=== PATIENT | female | born 1985 | race Caucasian/White ===

== ENCOUNTER 2018-09-21 20:45 | Inpatient (IN) | payer OTHER ==
[2018-09-21] MEDS ORDERED: hydrOXYzine HCl 25 MG Tab PO ONE (22:16)
[2018-09-21] MEDS ORDERED: Lidocaine 1% 30 ML SDV INJECT PRN (23:28)
[2018-09-21] MEDS ORDERED: Misoprostol 400 MCG (4 X 100 MCG TAB) RECTAL PRN (23:28)
[2018-09-21] MEDS ORDERED: Carboprost Tromethamine 250 MCG/1 ML Amp IM PRN (23:28)
[2018-09-21] MEDS ORDERED: Methylergonovine 0.2 MG/1 ML Amp IM PRN (23:28)
[2018-09-21] MEDS ORDERED: Lactated Ringers 500 ML IV ONE (23:28)
[2018-09-21] MEDS ORDERED: Ondansetron 4 MG/2 ML SDV IV PRN (23:28)
[2018-09-21] MEDS ORDERED: Sodium Chloride 0.9% 10 ML Syringe FLUSH PRN (23:28)
[2018-09-21] MEDS ORDERED: Acetaminophen 325 MG Tab PO PRN (23:28)
[2018-09-21] MEDS ORDERED: Tranexamic Acid 1,000 MG in Sodium Chloride 0.9% 100 ML IV PRN (23:28)
[2018-09-21] MEDS ORDERED: fentaNYL 100 MCG/2 ML SDV ONE (23:44)
[2018-09-21] MEDS ORDERED: EPINEPHrine 1 MG/ML SDV ONE (23:44)
[2018-09-22] MEDS: Lactated Ringers 1,000 ML IV SCH ×6 (00:01→13:27)
--- NOTE | 2018-09-22 00:20 | PCM.PRNOTE ---
- Free Text/Narrative Note: Requested to provide analgesia to full term patient in severe pain. Upon entering the room, patient is sitting on edge of bed complaining of severe abdominal/pelvic pain and discomfort. Procedure was discussed with patient including adverse outcomes and expectations. Pt consented to analgesia, SAB/ IT. Pt placed into a proper sitting position. Landmarks for SAB/IT were identified and marked. Hands were washed and appropriate PPE was applied. Back was prepped with betadine x3. A sterile, transparent, fenestrated drape was applied. Excess betadine was removed. Using 3 mL of a 1% lidocaine solution , a skin wheel was placed at the L2/L3 interspace. A 24 ga (4 inch) Pencan spinal needle was inserted until positive for CSF. Negative for heme or paresthesias. Injected fentanyl 30 mcg, sufentanil 25 mcg, and 7.5 mg of a 0.75 % bupivacaine solution with an epi wash. Pt was placed left lateral position for approximately 20 minutes. There were zero complications or adverse outcomes. Will continue to monitor. Procedure Date & Time: 09/21/18 [id number]
[2018-09-22] MEDS: Calcium Carbonate 500 MG Tab.Chew PO PRN (00:54)
[2018-09-22] MEDS ORDERED: EPINEPHrine 1 MG/ML SDV ONE (04:27)
[2018-09-22] MEDS ORDERED: fentaNYL 100 MCG/2 ML SDV ONE ×2 (04:27→08:51)
--- NOTE | 2018-09-22 04:59 | PCM.PRNOTE ---
- Free Text/Narrative Note: Requested to provide analgesia to full term patient in severe pain. Upon entering the room, patient is sitting on edge of bed complaining of severe abdominal/pelvic pain and discomfort. Procedure was discussed with patient including adverse outcomes and expectations. Pt consented to analgesia, SAB/ IT. Pt placed into a proper sitting position. Landmarks for SAB/IT were identified and marked. Hands were washed and appropriate PPE was applied. Back was prepped with betadine x3. A sterile, transparent, fenestrated drape was applied. Excess betadine was removed. Using 3 mL of a 1% lidocaine solution , a skin wheel was placed at the L2/L3 interspace. A 24 ga (4 inch) Pencan spinal needle was inserted until positive for CSF. Negative for heme or paresthesias. Injected fentanyl 20 mcg, sufentanil 20 mcg, and 7.5 mg of a 0.75 % bupivacaine solution with an epi wash. Pt was placed left lateral position for approximately 20 minutes. There were zero complications or adverse outcomes. Will continue to monitor. Procedure Date & Time: 09/22/18 [id number]
[2018-09-22] MEDS: Oxytocin/Normal Saline 30 UNIT/500 ML BAG IV SCH ×2 (05:10→16:44)
--- NOTE | 2018-09-22 06:19 | HP ---
CHIEF COMPLAINT: Increased force and frequency of contractions. HISTORY OF PRESENT ILLNESS: The patient is a 33-year-old , at 38 weeks and 6 days gestation, who presented to Labor and Delivery with contractions that started around 11:00 a.m. this morning, they felt really achy. They were building up throughout the day, upon arrival they were 4 minutes apart. She also has some pelvic pain. She has no leakage of large amounts of fluid. Does have some mucus with a little bit of blood in it. movement has remained excellent. No other concerns or questions at this time. LABS: Blood type O positive, rubella immune, syphilis serology nonreactive. Hep B nonreactive. HIV negative. Gonorrhea and chlamydia negative. One-hour glucose 149, 3-hour glucose 113. GBS negative. PAST MEDICAL HISTORY: 1. Maternal anemia affecting the in the third trimester. 2. History of chickenpox. 3. Dehydration during . 4. Heartburn. 5. Anxiety. PAST SURGICAL HISTORY: EGD with closed biopsy and tympanostomy tube placement. FAMILY HISTORY: Mother, anxiety disorder. Father, depression and high cholesterol. Maternal grandmother, breast cancer. Paternal uncle, diabetes. SOCIAL HISTORY: She is working full-time at [employer] with [employer]. Lives with in [place] and has 3 stepdaughters. Met on GL 2ours. This is their 1st child together. It is a planned . works in [employer] with [employer]. MEDICATIONS: vitamins and iron. ALLERGIES: No known allergies. REVIEW OF SYSTEMS: As listed under history of present illness, otherwise unremarkable. No shortness of breath, chest pain, headaches, blurry vision, nausea, vomiting, or dysuria. PHYSICAL EXAMINATION: Vital Signs: Blood pressure 145/87, temperature 99.4, and pulse 105. RR 16. The patient is breathing through her contractions and desires intrathecal at this time. HEENT: Grossly unremarkable. Neck: Supple. No adenopathy. Heart: Regular without murmur. Lungs: Clear to auscultation bilaterally. Abdomen: Gravid and heart tone tracing in the 150s with mild variability. [place] showing contractions every 1 to 2 minutes. Pelvic: Cervix is 4 cm dilated, 75% effaced. Bag of water is intact. Extremities: Trace edema bilaterally. No erythema or tenderness noted. Neurologic: Appropriate. ASSESSMENT: 1. 1, para 0. 2. 38 weeks 6 days gestation. 3. Anemia of . 4. Blood type O positive. Rubella immune. Group B strep negative. 5. Abnormal 1 hour glucose tolerance test, normal 3-hour glucose tolerance test. PLAN: The patient will receive an intrathecal as soon as possible. Anticipate possible rupture of membranes after that or depending on her progress, may leave the bag of water intact. Anticipating vaginal delivery. We will monitor and make changes to plans when and if it becomes necessary. The patient was seen by myself and Dr. Callahan. Assessment and plan are under advisement of Dr. Callahan. Ramiroalexis Cruz, MS-III [facility] /[id number] I have seen this patient along with the student, and agree with the above evaluation and plan. See above notes for details. Elena Callahan MD. MTDMargarette
--- NOTE | 2018-09-22 07:33 | PCM.SN ---
- Free Text/Narrative Note: DOS: 09-22-18 Sharon has been laboring through the night. Has had her second intrathecal, which is working very well for her at this point. pitocin currently at 4 some meconium noted in fluid by nursing staff, but now fluid appears clear with her exam. she has some liquid meconium-like stool herself noted by me during her exam. cervix now rim posteriorly and is completely dilated at the 12-3 position. tracing Cat 2. continues to have long stretches of minimal variability no decels noted. baseline was 150, but was up to 160s-170 for a while currently back down to 150s with improved variability cxns every 2-3 minutes. tracing is favorable enough to allow her to continue to labor, and will allow her to labor down if possible. consider internal monitors if needed consider increasing pitocin if/when tracing returns to Cat 1 all questions answered for this delightful couple. staff aware of plan. note: temp 99.5 hmb
--- NOTE | 2018-09-22 09:55 | PCM.PRNOTE ---
- Free Text/Narrative Note: Requested to provide analgesia to full term patient in severe pain. Upon entering the room, patient is sitting on edge of bed complaining of severe abdominal/pelvic pain and discomfort. Procedure was discussed with patient including adverse outcomes and expectations. Pt consented to analgesia, SAB/ IT. Pt placed into a proper sitting position. Landmarks for SAB/IT were identified and marked. Hands were washed and appropriate PPE was applied. Back was prepped with betadine x3. A sterile, transparent, fenestrated drape was applied. Excess betadine was removed. Using 3 mL of a 1% lidocaine solution , a skin wheel was placed at the L2/L3 interspace. A 24 ga (4 inch) Pencan spinal needle was inserted until positive for CSF. Negative for heme or paresthesias. Injected fentanyl 15 mcg, sufentanil 20 mcg, and 7.5 mg of a 0.75 % bupivacaine solution. Pt was placed left lateral position for approximately 20 minutes. There were zero complications or adverse outcomes. Will continue to monitor. Procedure Date & Time: 09/21/18 [id number]
[2018-09-22] MEDS ORDERED: Oxytocin/Normal Saline 60 UNIT/1,000 ML BAG ONE (14:21)
[2018-09-22] MEDS ORDERED: Citric Acid/Sodium Citrate Solution 30 ML Cup PO ONE (14:35)
[2018-09-22] MEDS: ceFAZolin 2 GM in Premix Bag 1 BAG IV ONE ×2 (14:50→18:35)
[2018-09-22] MEDS ORDERED: Lactated Ringers 1,000 ML IV SCH (16:38)
[2018-09-22] MEDS ORDERED: ePHEDrine 50 MG/ML SDV IVPUSH PRN (16:38)
[2018-09-22] MEDS ORDERED: Misoprostol 400 MCG (4 X 100 MCG TAB) RECTAL PRN (16:38)
[2018-09-22] MEDS ORDERED: diphenhydrAMINE 50 MG/ML SDV IVPUSH PRN (16:38)
[2018-09-22] MEDS ORDERED: Ibuprofen 800 MG Tab PO PRN (16:38)
[2018-09-22] MEDS ORDERED: Carboprost Tromethamine 250 MCG/1 ML Amp IM ONE (16:38)
[2018-09-22] MEDS ORDERED: Acetaminophen 325 MG Tab PO PRN (16:38)
[2018-09-22] MEDS ORDERED: Acetaminophen/oxyCODONE 325-5 MG Tab PO PRN (16:38)
[2018-09-22] MEDS ORDERED: Ondansetron 4 MG/2 ML SDV IV PRN (16:38)
[2018-09-22] MEDS ORDERED: Methylergonovine 0.2 MG/1 ML Amp IM PRN (16:38)
[2018-09-22] MEDS ORDERED: Tranexamic Acid 1,000 MG in Sodium Chloride 0.9% 100 ML IV PRN (16:38)
[2018-09-22] MEDS ORDERED: Ketorolac 30 MG/ML SDV IVPUSH SCH (16:38)
[2018-09-22] MEDS ORDERED: Naloxone 2 MG/2 ML Syringe IVPUSH PRN (16:38)
--- NOTE | 2018-09-22 16:52 | PN ---
DATE: 09/22/2018 SUBJECTIVE: A 33-year-old primigravida, who presented today at 38 and 6/7th weeks in labor and is now 40 weeks' gestation. She progressed slowly and subsequently received intrathecal and Pitocin augmentation. She subsequently had a rim of cervix that easily slipped away with pushing. Therefore, we allowed her to push for the last hour and a half. However, she has pushed the baby down only to 0 to +1 station at the most with push. The baby's heart rate has remained reassuring. The mom is exhausted and is requesting a section at this point. The baby's head is not low enough to place the vacuum and I do not feel that her chances for vaginal delivery are good or that a vacuum would be helpful or successful. After discussion of her options, the patient and her now would like to proceed with a section and I do feel at this point that is the best option for this patient and the baby. The heart tones remained with a baseline of 150 with minimal variability. Has had a category 2 strip recently with no significant decelerations. IMPRESSION: A 33-year-old white female, 1, para 0, at 40 weeks' gestation. Failure to descend. Blood type O positive. Group B strep negative. Rubella immune. Admission hemoglobin 13.6/platelet count 27.9. Reassuring status with current category 2 tracing with intermittent meconium noted in the fluid. Patient with history of anxiety. PLAN: At this point, as noted, we will proceed with primary low-transverse section. Anticipate spinal anesthesia. The patient currently has a Chung catheter in place. This was pull down intermittently and currently does have some gross hematuria noted. I have reviewed the procedure with the patient and her . Reviewed alternatives, risks and benefits, and they do wish to proceed. Risks included, but were not limited to risk of infection with possible need of antibiotics including allergic reaction, risk of hemorrhage, and the possible need of blood transfusion with its inherent risks, known risk of DVT and will plan on Rohan stockings and SCDs and early ambulation for her, and risk of maternal or injury, etc. All other questions have been answered and they wished to proceed. Consent form has been signed. We will plan on Ancef 2 g IV for preop antibiotics. Natalie Hudson MD to assist along with medical students Supriya Dacosta MS-III and Ramiro Cruz, MS-III. Please see her notes and previous progress and nursing notes in [facility] for further details. [facility] /[id number] MTDD
[2018-09-22] MEDS: Simethicone 80 MG Tab.Chew PO SCH ×3 (17:36→22:06)
[2018-09-22] MEDS: Docusate Sodium 100 MG Cap PO PRN (18:40)
[2018-09-22] MEDS: Acetaminophen/oxyCODONE 325-5 MG Tab PO PRN ×2 (18:40→22:13)
[2018-09-22] MEDS: ceFAZolin 1 GM in Premix Bag 1 BAG IV SCH (22:09)
[2018-09-22] MEDS: Ketorolac 30 MG/ML SDV IVPUSH SCH (22:14)
--- NOTE | 2018-09-22 23:14 | OR ---
DATE: 09/22/2018 PREOPERATIVE DIAGNOSES: 1. A 33-year-old white female, G1, P0 at 40 weeks' gestation, failure to descend with category 2 tracing. 2. O positive blood type. 3. Rubella immune. 4. Group B Streptococcus negative. 5. History of anxiety. POSTOPERATIVE DIAGNOSES: 1. A 33-year-old white female, 1, now para 1. 2. Large for gestational age female, weighing 9 pounds 12 ounces/4415 grams with score of 7 and 9 at 1 and 5 minutes respectively born on 09/22/2019 at 15:14. 3. Occiput posterior presentation. 4. O positive blood type. 5. Rubella immune. 6. Group B Streptococcus negative. 7. History of anxiety. PROCEDURE: Primary low-transverse section. NYLON WINDER: Natalie Hudson MD; Supriya Dacosta MS-III; Ramiro Cruz MS-III. FINDINGS: This delightful 33-year-old, G1, P0 at 40 weeks' gestation, had presented in spontaneous labor. tracings were reassuring and she was subsequently evaluated and admitted. Please see her admission H and P for details. She underwent artificial rupture of membranes, had Pitocin augmentation, and intrathecals placed by Anesthesia, Chung catheter on the floor, and progressed to a point where she could begin pushing. Though, she pushed for over an hour and a half, she did not make significant progress and the baby's head descended only to a 0 station. Would come down to nearly a +1 with pushing, however, to go back up to a 0 station between contractions. We suspected a possible LGA in possibly OP presentation. Decision was made to proceed with section, please see progress notes for details. DESCRIPTION OF PROCEDURE: After consent was obtained, the patient was brought down to the OR and underwent spinal anesthesia with excellent results. She was prepped and draped in the usual sterile manner. A surgical marker was used to germania a Pfannenstiel incision. A time-out was performed in my presence. A skin incision was made with a scalpel. Electrocautery was used down through the subcutaneous tissue to the fascia, which was divided transversely. The rectus was identified and divided. This was done after superior and inferior fascial flaps were developed by sharp and blunt dissection without complication. The peritoneum was identified and entered bluntly and opened until we had visualization of the lower uterine segment. Her lower uterine segment appeared to be very thin and quite prominent and bulging forward. At first it appeared to possibly be the bladder, however, on further inspection, this was not the case and was actually noted to just simply be a large lower uterine segment. The XL Ramiro retractor was placed without difficulty. There was a small window of a bladder flap that had started to 4 minutes, it was extended again by sharp and blunt dissection and a stab incision was made into the lower uterine segment. Return of a moderate amount of fluid noted to be both clear and some meconium staining. The baby was in an OP presentation and the vertex was elevated up into the incision and subsequently delivered followed by the shoulders and the remainder of the baby. She was noted to be an LGA infant and had a spontaneous cry at . She was stimulated, dried, and suctioned. Her cord was doubly clamped and cut and the baby was carried to the warmer and handed off to awaiting nursery staff and cared for by Dr. Porter. The weight was later found to be 9 pounds 12 ounces/4415 g as noted and her score were 7 at 1 minute, and 9 at 5 minutes. Time of was 3:14 p.m. on 09/22/2018. A cord blood sample was obtained. The placenta was removed manually and the uterus was wiped clean and dry. The lower uterine segment was quite long and the cervix was noted to be opened. The placenta was later inspected and found to be complete with a central cord insertion and 3-vessel cord. The lower uterine section was slightly boggy and we did use increased doses of Pitocin infusion to help firm up the uterus. Incision edges were grasped with Heart forceps and the incision was closed with a running locking 0 Vicryl suture followed by an imbricating layer #2 for a double-layer closure, therefore she would be a candidate if she so chooses. Any small bleeders were electrocauterized and a couple of [id number] sutures were placed for hemostasis. The incision was then inspected and found to be dry. The uterus and tubes were inspected and appeared to be within normal limits. The uterus was lifted and the posterior cul-de-sac was examined. Uterus was placed back into its anatomic position and incision was examined 1 more time and found to be hemostatic. The Ramiro retractor was removed. The peritoneum layer was closed with a running Vicryl scrap. Muscle layer was brought together with interrupted [id number] stitches. The subfascial layer was irrigated. The fascia was closed with a running PDS loop suture with good results. Subcutaneous layer was irrigated. Bleeders were electrocauterized and the skin was brought together with wojciech. Sponge and instrument counts were correct. The patient received Ancef 2 g IV preop antibiotic. The patient is receiving Pitocin IV infusion per protocol. ESTIMATED BLOOD LOSS: 600 mL. There were no intraoperative complications and she was transferred to the recovery room in good condition with Chung continuing to drain slightly blood tinged urine. She had adequate urinary output during and following the procedure. We will follow up and postop orders and cares. Further management pending her clinical course. She does plan to breastfeed. [facility] /[id number]
[2018-09-23] MEDS: Ketorolac 30 MG/ML SDV IVPUSH SCH ×2 (03:46→09:45)
[2018-09-23] MEDS: Acetaminophen/oxyCODONE 325-5 MG Tab PO PRN ×4 (06:23→22:15)
[2018-09-23] MEDS: ceFAZolin 1 GM in Premix Bag 1 BAG IV SCH ×2 (06:24→13:23)
--- NOTE | 2018-09-23 08:02 | PCM.PN ---
<Supriya Dacosta - Last Filed: 09/23/18 08:12> - General Info Date of Service: 09/23/18 Admission Dx/Problem (Free Text): Patient is 33yo primigravida female HD#1 S/P Primary LTCS due to failure to descend with category 2 tracing with delivery of LGA female weighing 4415g. Patient is doing well. Reports feeling sore but no other concerns. Dia catheter is still in place, urine has returned to normal color. Compression stockings in place with SCD's Patient is excited to get dia removed and clean up Patient is tolerating general diet. - Patient Data Vitals - Most Recent: Last Vital Signs Temp 98.5 F 09/23/18 03:37 Pulse 122 H 09/23/18 04:00 Resp 18 09/23/18 04:00 BP 126/58 L 09/23/18 04:00 Pulse Ox 98 09/22/18 16:45 Weight - Most Recent: 237 lb I&O - Last 24 Hours: Intake & Output 09/22/18 09/23/18 09/23/18 22:59 06:59 14:59 Intake Total 324 2300 Output Total 50 350 Balance 274 1950 Med Orders - Current: Current Medications Acetaminophen (Tylenol) 650 mg PO Q4H PRN PRN Reason: Pain (Mild 1-3) and fever Acetaminophen (Tylenol) 650 mg PO Q6H PRN PRN Reason: mild pain or fever Calcium Carbonate/Glycine (Tums) 1,000 mg PO Q2H PRN PRN Reason: Heartburn Last Admin: 09/22/18 00:54 Dose: 1,000 mg Carboprost Tromethamine (Hemabate Ds) 250 mcg IM ASDIRECTED PRN PRN Reason: HEMORRHAGE Diphenhydramine HCl (Benadryl) 25 mg IVPUSH Q6H PRN PRN Reason: Itching or Nausea Docusate Sodium (Colace) 100 mg PO Q12H PRN PRN Reason: Constipation Last Admin: 09/22/18 18:40 Dose: 100 mg Ephedrine Sulfate (Ephedrine Sulfate) 5 mg IVPUSH SEECOMMENT PRN PRN Reason: Other Lactated Ringer's (Ringers, Lactated) 1,000 mls @ 125 mls/hr IV ASDIRECTED ORLIN Last Admin: 09/22/18 13:27 Dose: 125 mls/hr Oxytocin/Sodium Chloride (Pitocin In Ns 30 Unit/500 Ml) 30 unit in 500 mls @ 2 mls/hr IV TITRATE [facility]; Protocol Last Titration: 09/22/18 19:50 Dose: 0 mls/hr Tranexamic Acid 1,000 mg/ (Sodium Chloride) 110 mls @ 660 mls/hr IV ONETIME PRN PRN Reason: Bleeding Cefazolin Sodium/Dextrose 1 gm (/ Premix) 50 mls @ 100 mls/hr IV Q8HR [facility] Stop: 09/23/18 14:29 Last Admin: 09/23/18 06:24 Dose: 100 mls/hr Lactated Ringer's (Ringers, Lactated) 1,000 mls @ 125 mls/hr IV ASDIRECTED [facility] Tranexamic Acid 1,000 mg/ (Sodium Chloride) 110 mls @ 660 mls/hr IV ONETIME PRN PRN Reason: Bleeding Ibuprofen (Motrin) 800 mg PO Q8H PRN PRN Reason: mild pain or fever Ketorolac Tromethamine (Toradol) 15 mg IVPUSH Q6H [facility] Stop: 09/23/18 10:01 Last Admin: 09/23/18 03:46 Dose: 15 mg Lidocaine HCl (Xylocaine-Mpf 1%) 30 ml INJECT ASDIRECTED PRN PRN Reason: Perineal Repair Methylergonovine Maleate (Methergine) 0.2 mg IM ASDIRECTED PRN PRN Reason: Hemorrhage Methylergonovine Maleate (Methergine) 0.2 mg IM ONETIME PRN PRN Reason: Excessive Vaginal Bleeding Misoprostol (Cytotec) 800 mcg RECTAL ASDIRECTED PRN PRN Reason: Hemorrhage Misoprostol (Cytotec) 800 mcg RECTAL ASDIRECTED PRN PRN Reason: Excessive bleeding Naloxone HCl (Narcan) 0.1 mg IVPUSH SEECOMMENT PRN PRN Reason: Respiratory Depression Ondansetron HCl (Zofran) 4 mg IV Q4H PRN PRN Reason: Nausea/Vomiting Last Admin: 09/22/18 04:25 Dose: 4 mg Ondansetron HCl (Zofran) 4 mg IV Q4H PRN PRN Reason: Nausea/Vomiting Oxycodone/Acetaminophen (Percocet 325-5 Mg) 1 tab PO Q4H PRN PRN Reason: Pain (moderate 4-6) Oxycodone/Acetaminophen (Percocet 325-5 Mg) 2 tab PO Q4H PRN PRN Reason: Pain (moderate 4-6) Last Admin: 09/23/18 06:23 Dose: 2 tab Prenat Multivit/Bollinger/Iron/Folic Ac ( Plus Iron) 1 each PO DAILY [facility] Simethicone (Simethicone) 160 mg PO QID ORLIN Last Admin: 09/22/18 22:06 Dose: 160 mg Sodium Chloride (Saline Flush) 10 ml FLUSH ASDIRECTED PRN PRN Reason: Keep Vein Open Discontinued Medications Carboprost Tromethamine (Hemabate Ds) 250 mcg IM ONETIME ONE Stop: 09/22/18 16:39 Last Admin: 09/22/18 17:36 Dose: Not Given Citric Acid/Sodium Citrate (Bicitra Solution) 30 ml PO ONETIME ONE Stop: 09/22/18 14:36 Last Admin: 09/22/18 15:58 Dose: Not Given Epinephrine HCl (Adrenalin) Confirm Administered Dose 1 mg .ROUTE .STK-MED ONE Stop: 09/21/18 23:45 Last Admin: 09/22/18 01:00 Dose: Not Given Epinephrine HCl (Adrenalin) Confirm Administered Dose 1 mg .ROUTE .STK-MED ONE Stop: 09/22/18 04:28 Last Admin: 09/22/18 07:02 Dose: Not Given Fentanyl (Sublimaze) Confirm Administered Dose 100 mcg .ROUTE .STK-MED ONE Stop: 09/21/18 23:45 Last Admin: 09/22/18 01:00 Dose: Not Given Fentanyl (Sublimaze) Confirm Administered Dose 100 mcg .ROUTE .STK-MED ONE Stop: 09/22/18 04:28 Last Admin: 09/22/18 07:07 Dose: Not Given Fentanyl (Sublimaze) Confirm Administered Dose 100 mcg .ROUTE .STK-MED ONE Stop: 09/22/18 08:52 Last Admin: 09/22/18 14:36 Dose: Not Given Hydroxyzine HCl (Atarax) 50 mg PO ONETIME ONE Stop: 09/21/18 22:17 Last Admin: 09/21/18 22:31 Dose: 50 mg Lactated Ringer's (Ringers, Lactated) 500 mls @ 999 mls/hr IV .BOLUS ONE Stop: 09/21/18 23:58 Last Admin: 09/21/18 23:10 Dose: 999 mls/hr Oxytocin/Sodium Chloride (Pitocin In Ns 30 Unit/500 Ml) Confirm Administered Dose 60 unit in 1,000 mls @ as directed .ROUTE .STK-MED ONE Stop: 09/22/18 14:22 Cefazolin Sodium/Dextrose 2 gm (/ Premix) 50 mls @ 100 mls/hr IV ONETIME ONE Stop: 09/22/18 15:00 Last Admin: 09/22/18 18:35 Dose: Not Given Ibuprofen (Motrin) 800 mg PO Q8H PRN PRN Reason: mild pain or fever Ketorolac Tromethamine (Toradol) 15 mg IVPUSH Q6H ORLIN Stop: 09/23/18 04:39 Last Admin: 09/22/18 18:36 Dose: Not Given Sufentanil Citrate (Sufenta) Confirm Administered Dose 50 mcg .ROUTE .STK-MED ONE Stop: 09/21/18 23:45 Last Admin: 09/22/18 01:00 Dose: Not Given Sufentanil Citrate (Sufenta) Confirm Administered Dose 50 mcg .ROUTE .STK-MED ONE Stop: 09/22/18 04:28 Last Admin: 09/22/18 07:07 Dose: Not Given Sufentanil Citrate (Sufenta) Confirm Administered Dose 50 mcg .ROUTE .STK-MED ONE Stop: 09/22/18 08:52 Last Admin: 09/22/18 14:36 Dose: Not Given - Exam General: Alert, Oriented, Cooperative, No Acute Distress HEENT: Pupils Equal, EOMI, Mucous Membr. Moist/[place] Neck: Supple Lungs: Clear to Auscultation, Normal Respiratory Effort. No: Crackles, Wheezing Cardiovascular: Regular Rate, Regular Rhythm, No Murmurs GI/Abdominal Exam: Normal Bowel Sounds, Soft, Tender (mildly), Other (uterus firm ay U) (Female) Exam: Normal External Exam, Vaginal Bleeding (normal amount) Extremities: Pedal Edema (compression stockings in place. SCD's on. ). No: Douglas's Sign, Leg Pain Peripheral Pulses: 3+: Posterior Tibial (L), Posterior Tibial (R) Skin: Warm, Dry, Intact Wound/Incisions: Dressing Dry and Intact. No: Erythema Neurological: No New Focal Deficit Psy/Mental Status: Alert, Normal Affect, Normal Mood - Problem List Review Problem List Initiated/Reviewed/Updated: Yes - My Orders Last 24 Hours: My Active Orders 09/22/18 16:38 Patient Status [ADT] Routine Antiembolic Devices [RC] 08,20 Bedrest [RC] ASDIRECTED Communication Order [RC] PER UNIT ROUTINE Intake and Output [RC] Q8H Notify Provider Intake and Out [RC] ASDIRECTED Notify Provider Vital Signs OB [RC] ASDIRECTED RT Incentive Spirometry [RC] Q2HWA Urinary Catheter Removal [RC] Per Unit Routine Vital Signs [RC] PER UNIT ROUTINE Acetaminophen [Tylenol] 650 mg PO Q6H PRN Acetaminophen/oxyCODONE [Percocet 325-5 MG] 1 tab PO Q4H PRN Acetaminophen/oxyCODONE [Percocet 325-5 MG] 2 tab PO Q4H PRN Docusate Sodium [Colace] 100 mg PO Q12H PRN Lactated Ringers [Ringers, Lactated] 1,000 ml IV ASDIRECTED Methylergonovine [Methergine] 0.2 mg IM ONETIME PRN Naloxone [Narcan] 0.1 mg IVPUSH SEECOMMENT PRN Ondansetron [Zofran] 4 mg IV Q4H PRN Tranexamic Acid [Cyklokapron] 1,000 mg Sodium Chloride 0.9% [Normal Saline] 100 ml IV ONETIME diphenhydrAMINE [Benadryl] 25 mg IVPUSH Q6H PRN ePHEDrine [ePHEDrine sulfate] 5 mg IVPUSH SEECOMMENT PRN miSOPROStol [Cytotec] 800 mcg RECTAL ASDIRECTED PRN Antiembolic Hose [OM.PC] Per Unit Routine Assess Lochia [WOMSER] Per Unit Routine Assess Uterine Involution [WOMSER] Per Unit Routine Breast Pump [WOMSER] Per Unit Routine Sequential Compression Device [OM.PC] Per Unit Routine 09/22/18 17:00 Simethicone 160 mg PO QID 09/22/18 22:00 Ketorolac [Toradol] 15 mg IVPUSH Q6H 09/22/18 Breakfast Clear Liquid Diet [DIET] 09/23/18 09:00 Vit with Ca/FA/Iron [ Plus Iron] 1 each PO DAILY 09/23/18 18:00 Ibuprofen [Motrin] 800 mg PO Q8H PRN 09/24/18 06:00 CBC W/O DIFF,HEMOGRAM [HEME] Routine - Plan Plan:: Assessment: Patient is 33yo primigravida female HD#1 S/P Primary LTCS due to failure to descend with category 2 tracing with delivery of LGA female weighing 4415g. Doing well. - O positive blood type -Rubella immune -GBS negative -Hx of anxiety -Occiput posterior presentation Plan: -Continue routine /postoperative cares -Dia out today as appropriate -Goal for ambulation, general diet, and urination - -Baby girl rooming in as much as possible for nursing and bonding Patient was seen and evaluated today by myself and Dr. Elena Callahan. Assessment and plan is under advisement of Dr. Callahan. -Supriya Dacosta MS-III <Elena Callahan M - Last Filed: 09/23/18 12:09> - General Info Date of Service: 09/23/18 Admission Dx/Problem (Free Text): Patient is 33yo primigravida female HD#1 S/P Primary LTCS due to failure to descend with category 2 tracing with delivery of LGA female weighing 4415g. Patient is doing well. Reports feeling sore but no other concerns. Dia catheter is still in place, urine has returned to normal color. Compression stockings in place with SCD's Patient is excited to get dia removed and clean up Patient is tolerating general diet. hmb - Patient Data Vitals - Most Recent: Last Vital Signs Temp 98.4 F 09/23/18 08:00 Pulse 102 H 09/23/18 08:00 Resp 16 09/23/18 08:00 BP 112/72 09/23/18 08:00 Pulse Ox 98 09/23/18 08:00 I&O - Last 24 Hours: Intake & Output 09/22/18 09/23/18 09/23/18 22:59 06:59 14:59 Intake Total 324 2300 Output Total 50 350 Balance 274 1950 Med Orders - Current: Current Medications Acetaminophen (Tylenol) 650 mg PO Q4H PRN PRN Reason: Pain (Mild 1-3) and fever Acetaminophen (Tylenol) 650 mg PO Q6H PRN PRN Reason: mild pain or fever Calcium Carbonate/Glycine (Tums) 1,000 mg PO Q2H PRN PRN Reason: Heartburn Last Admin: 09/22/18 00:54 Dose: 1,000 mg Carboprost Tromethamine (Hemabate Ds) 250 mcg IM ASDIRECTED PRN PRN Reason: HEMORRHAGE Diphenhydramine HCl (Benadryl) 25 mg IVPUSH Q6H PRN PRN Reason: Itching or Nausea Docusate Sodium (Colace) 100 mg PO Q12H PRN PRN Reason: Constipation Last Admin: 09/23/18 09:45 Dose: 100 mg Ephedrine Sulfate (Ephedrine Sulfate) 5 mg IVPUSH SEECOMMENT PRN PRN Reason: Other Lactated Ringer's (Ringers, Lactated) 1,000 mls @ 125 mls/hr IV ASDIRECTED [facility] Last Admin: 09/22/18 13:27 Dose: 125 mls/hr Oxytocin/Sodium Chloride (Pitocin In Ns 30 Unit/500 Ml) 30 unit in 500 mls @ 2 mls/hr IV TITRATE [facility]; Protocol Last Titration: 09/22/18 19:50 Dose: 0 mls/hr Tranexamic Acid 1,000 mg/ (Sodium Chloride) 110 mls @ 660 mls/hr IV ONETIME PRN PRN Reason: Bleeding Cefazolin Sodium/Dextrose 1 gm (/ Premix) 50 mls @ 100 mls/hr IV Q8HR [facility] Stop: 09/23/18 14:29 Last Admin: 09/23/18 06:24 Dose: 100 mls/hr Lactated Ringer's (Ringers, Lactated) 1,000 mls @ 125 mls/hr IV ASDIRECTED [facility] Tranexamic Acid 1,000 mg/ (Sodium Chloride) 110 mls @ 660 mls/hr IV ONETIME PRN PRN Reason: Bleeding Ibuprofen (Motrin) 800 mg PO Q8H PRN PRN Reason: mild pain or fever Lidocaine HCl (Xylocaine-Mpf 1%) 30 ml INJECT ASDIRECTED PRN PRN Reason: Perineal Repair Methylergonovine Maleate (Methergine) 0.2 mg IM ASDIRECTED PRN PRN Reason: Hemorrhage Methylergonovine Maleate (Methergine) 0.2 mg IM ONETIME PRN PRN Reason: Excessive Vaginal Bleeding Misoprostol (Cytotec) 800 mcg RECTAL ASDIRECTED PRN PRN Reason: Hemorrhage Misoprostol (Cytotec) 800 mcg RECTAL ASDIRECTED PRN PRN Reason: Excessive bleeding Naloxone HCl (Narcan) 0.1 mg IVPUSH SEECOMMENT PRN PRN Reason: Respiratory Depression Ondansetron HCl (Zofran) 4 mg IV Q4H PRN PRN Reason: Nausea/Vomiting Last Admin: 09/22/18 04:25 Dose: 4 mg Ondansetron HCl (Zofran) 4 mg IV Q4H PRN PRN Reason: Nausea/Vomiting Oxycodone/Acetaminophen (Percocet 325-5 Mg) 1 tab PO Q4H PRN PRN Reason: Pain (moderate 4-6) Oxycodone/Acetaminophen (Percocet 325-5 Mg) 2 tab PO Q4H PRN PRN Reason: Pain (moderate 4-6) Last Admin: 09/23/18 11:21 Dose: 2 tab Prenat Multivit/Laryngologist/Iron/Folic Ac ( Plus Iron) 1 each PO DAILY [facility] Last Admin: 09/23/18 09:45 Dose: 1 each Simethicone (Simethicone) 160 mg PO QID [facility] Last Admin: 09/23/18 09:46 Dose: 160 mg Sodium Chloride (Saline Flush) 10 ml FLUSH ASDIRECTED PRN PRN Reason: Keep Vein Open Discontinued Medications Carboprost Tromethamine (Hemabate Ds) 250 mcg IM ONETIME ONE Stop: 09/22/18 16:39 Last Admin: 09/22/18 17:36 Dose: Not Given Citric Acid/Sodium Citrate (Bicitra Solution) 30 ml PO ONETIME ONE Stop: 09/22/18 14:36 Last Admin: 09/22/18 15:58 Dose: Not Given Epinephrine HCl (Adrenalin) Confirm Administered Dose 1 mg .ROUTE .STK-MED ONE Stop: 09/21/18 23:45 Last Admin: 09/22/18 01:00 Dose: Not Given Epinephrine HCl (Adrenalin) Confirm Administered Dose 1 mg .ROUTE .STK-MED ONE Stop: 09/22/18 04:28 Last Admin: 09/22/18 07:02 Dose: Not Given Fentanyl (Sublimaze) Confirm Administered Dose 100 mcg .ROUTE .STK-MED ONE Stop: 09/21/18 23:45 Last Admin: 09/22/18 01:00 Dose: Not Given Fentanyl (Sublimaze) Confirm Administered Dose 100 mcg .ROUTE .STK-MED ONE Stop: 09/22/18 04:28 Last Admin: 09/22/18 07:07 Dose: Not Given Fentanyl (Sublimaze) Confirm Administered Dose 100 mcg .ROUTE .STK-MED ONE Stop: 09/22/18 08:52 Last Admin: 09/22/18 14:36 Dose: Not Given Hydroxyzine HCl (Atarax) 50 mg PO ONETIME ONE Stop: 09/21/18 22:17 Last Admin: 09/21/18 22:31 Dose: 50 mg Lactated Ringer's (Ringers, Lactated) 500 mls @ 999 mls/hr IV .BOLUS ONE Stop: 09/21/18 23:58 Last Admin: 09/21/18 23:10 Dose: 999 mls/hr Oxytocin/Sodium Chloride (Pitocin In Ns 30 Unit/500 Ml) Confirm Administered Dose 60 unit in 1,000 mls @ as directed .ROUTE .STK-MED ONE Stop: 09/22/18 14:22 Cefazolin Sodium/Dextrose 2 gm (/ Premix) 50 mls @ 100 mls/hr IV ONETIME ONE Stop: 09/22/18 15:00 Last Admin: 09/22/18 18:35 Dose: Not Given Ibuprofen (Motrin) 800 mg PO Q8H PRN PRN Reason: mild pain or fever Ketorolac Tromethamine (Toradol) 15 mg IVPUSH Q6H [facility] Stop: 09/23/18 04:39 Last Admin: 09/22/18 18:36 Dose: Not Given Ketorolac Tromethamine (Toradol) 15 mg IVPUSH Q6H [facility] Stop: 09/23/18 10:01 Last Admin: 09/23/18 09:45 Dose: 15 mg Sufentanil Citrate (Sufenta) Confirm Administered Dose 50 mcg .ROUTE .STK-MED ONE Stop: 09/21/18 23:45 Last Admin: 09/22/18 01:00 Dose: Not Given Sufentanil Citrate (Sufenta) Confirm Administered Dose 50 mcg .ROUTE .STK-MED ONE Stop: 09/22/18 04:28 Last Admin: 09/22/18 07:07 Dose: Not Given Sufentanil Citrate (Sufenta) Confirm Administered Dose 50 mcg .ROUTE .STK-MED ONE Stop: 09/22/18 08:52 Last Admin: 09/22/18 14:36 Dose: Not Given - Problem List Review Problem List Initiated/Reviewed/Updated: Yes - My Orders Last 24 Hours: My Active Orders 09/22/18 18:33 Heat Therapy [OM.PC] Routine 09/22/18 22:00 ceFAZolin [Ancef] 1 gm Premix Bag 1 bag IV Q8HR 09/23/18 11:09 Consult to [facility] [CONS] Routine 09/23/18 Breakfast Regular Diet [DIET] - Plan Plan:: I have seen this patient along with the student hmb Attestation - Student - Attestation Statement Attestation Statement: I personally performed or re-performed the physical examination and medical decision making. I have verified all student documentation or findings, including history, physical exam and/or medical decision making. Elena Callahan MD
[2018-09-23] MEDS: Docusate Sodium 100 MG Cap PO PRN (09:45)
[2018-09-23] MEDS: Prenatal Multivitamin with Calcium/Folic Acid/Iron Tab PO SCH (09:45)
[2018-09-23] MEDS: Simethicone 80 MG Tab.Chew PO SCH ×4 (09:46→21:20)
[2018-09-23] MEDS ORDERED: Lactated Ringers 1,000 ML IV ONE (15:14)
[2018-09-23] MEDS ORDERED: Ketorolac 30 MG/ML SDV IVPUSH ONE (15:14)
[2018-09-23] MEDS ORDERED: fentaNYL 100 MCG/2 ML SDV ITHECAL ONE (15:21)
[2018-09-23] MEDS: Ibuprofen 800 MG Tab PO PRN (18:02)
[2018-09-24] MEDS: Acetaminophen/oxyCODONE 325-5 MG Tab PO PRN ×4 (02:44→21:53)
[2018-09-24] MEDS: Prenatal Multivitamin with Calcium/Folic Acid/Iron Tab PO SCH (08:10)
[2018-09-24] MEDS: Docusate Sodium 100 MG Cap PO PRN ×2 (08:10→23:16)
[2018-09-24] MEDS: Simethicone 80 MG Tab.Chew PO SCH ×4 (08:11→21:37)
[2018-09-24] MEDS: Ibuprofen 800 MG Tab PO PRN ×2 (08:12→23:16)
[2018-09-24] MEDS ORDERED: fentaNYL 100 MCG/2 ML SDV ITHECAL ONE ×2 (10:34→10:35)
[2018-09-24] MEDS ORDERED: EPINEPHrine 1 MG/ML SDV IV ONE ×2 (10:34→10:35)
[2018-09-24] MEDS ORDERED: Oxytocin/Normal Saline 30 UNIT/500 ML BAG IV ONE (13:01)
--- NOTE | 2018-09-24 13:06 | PCM.SN ---
- Free Text/Narrative Note: DOS: POD #2 Doing well. voiding, ambulating, eating without difficulty. walking around room on my arrival, easily ambulating, normal gait no nausea or vomiting. plans to shower today. nursing, going well. feeling stomach rumbling, hasn't passed gas yet. VS show pulse 77-90s BP stable and WNL no fever abdomen soft nurse reports BS present this morning, and mom nursing at this time so I did not do full abdominal exam appears very comfortable. staff reports normal lochia flow. Hbg down to 8.2 on lab today. however, appears clinically stable. suspect she may have been mildly concentrated on admission and received large amounts of IV fluids (8L) during labor and surgery which likely hemodilated her. She did not have excessive blood loss visible at the time of surgery. She is currently hemodynamically stable. Plan to recheck her hgb at 3pm, and if >8, will continue to monitor, and recheck in the morning. if < 8 will need to consider imaging of her abdomen to r/o internal bleeding. further management pending her clinical course. reviewed with Sharon and her family. all questions answered. She is happy with this plan. natividad
[2018-09-24] MEDS: Ferrous Sulfate 325 MG Tab PO SCH (17:49)
[2018-09-25] MEDS: Acetaminophen/oxyCODONE 325-5 MG Tab PO PRN ×3 (02:08→14:20)
[2018-09-25] MEDS: Calcium Carbonate 500 MG Tab.Chew PO PRN (07:55)
[2018-09-25] MEDS: Simethicone 80 MG Tab.Chew PO SCH ×2 (08:15→14:04)
[2018-09-25] MEDS: Prenatal Multivitamin with Calcium/Folic Acid/Iron Tab PO SCH (08:15)
[2018-09-25] MEDS: Ferrous Sulfate 325 MG Tab PO SCH (08:15)
--- NOTE | 2018-09-25 13:30 | PCM.DCSUM1 ---
Discharge Summary - Hospital Course Free Text/Narrative:: DOA: 09-21-18 DOD 09-25-18 DX: 33yo G1 now P1 39 week gestation O + blood type rubella immune GBS negative postop anemia--blood loss acute, and anemia of anxiety primary low transverse section for failure to descend, persistent OP position and persistent Cat 2 tracing macrosomic female infant 4415g/9lb 12oz born @ 1514 on [birth year] with APGARs 7 & 9 Sharon is 33yo WF G1Po who presented at 38w6d with cxns and was found to be in active labor with her planned . see records for details. she was admitted and has reactive NST, Cat 1 strip, VSS and was 4cm dilated, 75% effaced and received intrathecal. hgb 13.6 with PLT 279 on admit. She had multiple intrathecals, pitocin augmentation, reached complete dilation, pushed for nearly 2 hours, meconium fluid noted with persistent Cat 2 tracing, suspected POP position and likely LGA , and subsequent PLTCS carried out without complications delivering a viable female infant weighing 4415g/9lb 12oz with APGARs 7 & 9 at 1514 on 09-22-18. see operative note for details. She did well clinically and was discharged home on POD #3. she had significant post-op anemia. see progress notes and hospital course section for details. b HPI Initial Comments: 33yo @ 38w6d who presented in active labor. see above for details. b Diagnosis: Stroke: No - Discharge Data Discharge Date: 09/25/18 (DISCHARGE DATE) Discharge Disposition: Home, Self-Care 01 Condition: Good - Patient Summary/Data Consults: Consultations 09/23/18 11:09 Consult to Web Database Developer [CONS] Routine Recommended Follow-up Testing/Procedures: follow up in one week for staple removal/recheck and hgb recheck/vitals. sooner prn. hmb Hospital Course: Post-op course was uneventful. anesthesia resolved. Sharon remained afebrile with stable VS. dia removed and voiding well. ambulating without difficulty. nursing and databases software consultant in to see her. bowel and bladder function returned. eating without difficutly. hgb was noted to be lower than expected @ 8.2, so was followed serially during her stay with values of 8.8, 7.7 and 8.1 at discharge, and she remained asymptomatic and clinically stable. therefore, decision made to not pursue transfusion, and to go ahead with iron supplementation and close follow up. will see in the clinic within the week for recheck, vital check, incision and staple check and repeat hemaglobin, and sooner prn. all questions answered, and she was discharged home in good condition on post- op day #3. see orders and instructions for details. hmb - Patient Instructions Diet: Usual Diet as Tolerated, Regular Diet as Tolerated Activity: No Lifting Over 10 Pounds, No Strenuous Activities Driving: Do Not Drive Showering/Bathing: May Shower Wound/Incision Care: Keep Operative Site/Wound Site Clean and Dry Notify Provider of: Fever, Increased Pain, Swelling and Redness, Nausea and/or Vomiting - Discharge Plan *PRESCRIPTION DRUG MONITORING PROGRAM REVIEWED*: No *COPY OF PRESCRIPTION DRUG MONITORING REPORT IN PATIENT AUBREY: No Home Medications: Home Meds Vit #76/Iron,Carb/Fa [Pnv 29-1 Tablet] 1 tab PO DAILY 09/22/18 [History ] Ranitidine HCl [Ranitidine] 1 tab PO DAILY 09/22/18 [History] Patient Handouts: Delivery, Care After, Home Care Instructions for Mom - Discharge Summary/Plan Comment DC Time >30 min.: No Discharge Summary/Plan Comment: follow up for recheck as outlined above within the week as scheduled, and sooner if needed. hmb - Patient Data Vitals - Most Recent: Last Vital Signs Temp 98.8 F 09/24/18 23:41 Pulse 98 09/24/18 23:41 Resp 16 09/24/18 23:41 BP 122/71 09/24/18 23:41 Pulse Ox 98 09/24/18 23:41 Weight - Most Recent: 237 lb I&O - Last 24 hours: Intake & Output 09/24/18 09/25/18 09/25/18 22:59 06:59 14:59 Intake Total 1240 Balance 1240 Lab Results - Last 24 hrs: Laboratory Results - last 24 hr 09/24/18 09/25/18 Range/Units 15:08 06:15 Hgb 8.8 L 7.7 L (12.0-16.0) g/dL Hct 24.2 L (37.0-47.0) % Med Orders - Current: Current Medications Acetaminophen (Tylenol) 650 mg PO Q4H PRN PRN Reason: Pain (Mild 1-3) and fever Calcium Carbonate/Glycine (Tums) 1,000 mg PO Q2H PRN PRN Reason: Heartburn Last Admin: 09/25/18 07:55 Dose: 1,000 mg Carboprost Tromethamine (Hemabate Ds) 250 mcg IM ASDIRECTED PRN PRN Reason: HEMORRHAGE Diphenhydramine HCl (Benadryl) 25 mg IVPUSH Q6H PRN PRN Reason: Itching or Nausea Docusate Sodium (Colace) 100 mg PO Q12H PRN PRN Reason: Constipation Last Admin: 09/24/18 23:16 Dose: 100 mg Ephedrine Sulfate (Ephedrine Sulfate) 5 mg IVPUSH SEECOMMENT PRN PRN Reason: Other Ferrous Sulfate (Ferrous Sulfate) 325 mg PO BIDMEALS [facility] Last Admin: 09/25/18 08:15 Dose: 325 mg Oxytocin/Sodium Chloride (Pitocin In Ns 30 Unit/500 Ml) 30 unit in 500 mls @ 2 mls/hr IV TITRATE ORLIN; Protocol Last Titration: 09/22/18 19:50 Dose: 0 mls/hr Lactated Ringer's (Ringers, Lactated) 1,000 mls @ 125 mls/hr IV ASDIRECTED ORLIN Tranexamic Acid 1,000 mg/ (Sodium Chloride) 110 mls @ 660 mls/hr IV ONETIME PRN PRN Reason: Bleeding Ibuprofen (Motrin) 800 mg PO Q8H PRN PRN Reason: mild pain or fever, use 2nd Last Admin: 09/24/18 23:16 Dose: 800 mg Lidocaine HCl (Xylocaine-Mpf 1%) 30 ml INJECT ASDIRECTED PRN PRN Reason: Perineal Repair Methylergonovine Maleate (Methergine) 0.2 mg IM ONETIME PRN PRN Reason: Excessive Vaginal Bleeding Misoprostol (Cytotec) 800 mcg RECTAL ASDIRECTED PRN PRN Reason: Excessive bleeding Naloxone HCl (Narcan) 0.1 mg IVPUSH SEECOMMENT PRN PRN Reason: Respiratory Depression Ondansetron HCl (Zofran) 4 mg IV Q4H PRN PRN Reason: Nausea/Vomiting Oxycodone/Acetaminophen (Percocet 325-5 Mg) 1 tab PO Q4H PRN PRN Reason: Pain (moderate 4-6) Oxycodone/Acetaminophen (Percocet 325-5 Mg) 2 tab PO Q4H PRN PRN Reason: Pain (severe 7-10) Last Admin: 09/25/18 08:15 Dose: 2 tab Prenat Multivit/[place]/Iron/Folic Ac ( Plus Iron) 1 each PO DAILY [facility] Last Admin: 09/25/18 08:15 Dose: 1 each Simethicone (Simethicone) 160 mg PO QID [facility] Last Admin: 09/25/18 08:15 Dose: 160 mg Sodium Chloride (Saline Flush) 10 ml FLUSH ASDIRECTED PRN PRN Reason: Keep Vein Open Discontinued Medications Carboprost Tromethamine (Hemabate Ds) 250 mcg IM ONETIME ONE Stop: 09/22/18 16:39 Last Admin: 09/22/18 17:36 Dose: Not Given Citric Acid/Sodium Citrate (Bicitra Solution) 30 ml PO ONETIME ONE Stop: 09/22/18 14:36 Last Admin: 09/22/18 15:58 Dose: Not Given Epinephrine HCl (Adrenalin) Confirm Administered Dose 1 mg .ROUTE .STK-MED ONE Stop: 09/21/18 23:45 Last Admin: 09/22/18 01:00 Dose: Not Given Epinephrine HCl (Adrenalin) Confirm Administered Dose 1 mg .ROUTE .STK-MED ONE Stop: 09/22/18 04:28 Last Admin: 09/22/18 07:02 Dose: Not Given Epinephrine HCl (Adrenalin) 0.1 mg IV .STK-MED ONE Stop: 09/24/18 10:35 Epinephrine HCl (Adrenalin) 0.1 mg IV .STK-MED ONE Stop: 09/24/18 10:36 Fentanyl (Sublimaze) Confirm Administered Dose 100 mcg .ROUTE .STK-MED ONE Stop: 09/21/18 23:45 Last Admin: 09/22/18 01:00 Dose: Not Given Fentanyl (Sublimaze) Confirm Administered Dose 100 mcg .ROUTE .STK-MED ONE Stop: 09/22/18 04:28 Last Admin: 09/22/18 07:07 Dose: Not Given Fentanyl (Sublimaze) Confirm Administered Dose 100 mcg .ROUTE .STK-MED ONE Stop: 09/22/18 08:52 Last Admin: 09/22/18 14:36 Dose: Not Given Fentanyl (Sublimaze) 15 mcg ITHECAL .STK-MED ONE Stop: 09/23/18 15:22 Fentanyl (Sublimaze) 20 mcg ITHECAL .STK-MED ONE Stop: 09/24/18 10:35 Fentanyl (Sublimaze) 30 mcg ITHECAL .STK-MED ONE Stop: 09/24/18 10:36 Hydroxyzine HCl (Atarax) 50 mg PO ONETIME ONE Stop: 09/21/18 22:17 Last Admin: 09/21/18 22:31 Dose: 50 mg Lactated Ringer's (Ringers, Lactated) 500 mls @ 999 mls/hr IV .BOLUS ONE Stop: 09/21/18 23:58 Last Admin: 09/21/18 23:10 Dose: 999 mls/hr Lactated Ringer's (Ringers, Lactated) 1,000 mls @ 125 mls/hr IV ASDIRECTED [facility] Last Admin: 09/22/18 13:27 Dose: 125 mls/hr Tranexamic Acid 1,000 mg/ (Sodium Chloride) 110 mls @ 660 mls/hr IV ONETIME PRN PRN Reason: Bleeding Oxytocin/Sodium Chloride (Pitocin In Ns 30 Unit/500 Ml) Confirm Administered Dose 60 unit in 1,000 mls @ as directed .ROUTE .STK-MED ONE Stop: 09/22/18 14:22 Cefazolin Sodium/Dextrose 2 gm (/ Premix) 50 mls @ 100 mls/hr IV ONETIME ONE Stop: 09/22/18 15:00 Last Admin: 09/22/18 18:35 Dose: Not Given Cefazolin Sodium/Dextrose 1 gm (/ Premix) 50 mls @ 100 mls/hr IV Q8HR [facility] Stop: 09/23/18 14:29 Last Admin: 09/23/18 13:23 Dose: 100 mls/hr Lactated Ringer's (Ringers, Lactated) 1,000 mls @ as directed IV .STK-MED ONE Stop: 09/23/18 15:15 Oxytocin/Sodium Chloride (Pitocin In Ns 30 Unit/500 Ml) 30 unit in 500 mls @ as directed IV .STK-MED ONE Stop: 09/24/18 13:02 Ibuprofen (Motrin) 800 mg PO Q8H PRN PRN Reason: mild pain or fever Ketorolac Tromethamine (Toradol) 15 mg IVPUSH Q6H [facility] Stop: 09/23/18 04:39 Last Admin: 09/22/18 18:36 Dose: Not Given Ketorolac Tromethamine (Toradol) 15 mg IVPUSH Q6H [facility] Stop: 09/23/18 10:01 Last Admin: 09/23/18 09:45 Dose: 15 mg Ketorolac Tromethamine (Toradol) 30 mg IVPUSH .STK-MED ONE Stop: 09/23/18 15:15 Ondansetron HCl (Zofran) 4 mg IV Q4H PRN PRN Reason: Nausea/Vomiting Last Admin: 09/22/18 04:25 Dose: 4 mg Sufentanil Citrate (Sufenta) Confirm Administered Dose 50 mcg .ROUTE .STK-MED ONE Stop: 09/21/18 23:45 Last Admin: 09/22/18 01:00 Dose: Not Given Sufentanil Citrate (Sufenta) Confirm Administered Dose 50 mcg .ROUTE .STK-MED ONE Stop: 09/22/18 04:28 Last Admin: 09/22/18 07:07 Dose: Not Given Sufentanil Citrate (Sufenta) Confirm Administered Dose 50 mcg .ROUTE .STK-MED ONE Stop: 09/22/18 08:52 Last Admin: 09/22/18 14:36 Dose: Not Given Sufentanil Citrate (Sufenta) 20 mcg ITHECAL .STK-MED ONE Stop: 09/23/18 15:22 Sufentanil Citrate (Sufenta) 20 mcg ITHECAL .STK-MED ONE Stop: 09/24/18 10:35 Sufentanil Citrate (Sufenta) 25 mcg ITHECAL .STK-MED ONE Stop: 09/24/18 10:36
[2018-09-25] MEDS: Docusate Sodium 100 MG Cap PO PRN (14:28)
== END 2018-09-25 17:00 | disposition home or self-care (01) | DRG 788 ==
LOC: DL.OBCHECK 20:45 → DL.OB 23:20 → OBSVTOIN 09-22 15:14 → INTOOBSV 09-22 16:38 → DL.MS 09-24 12:02
PROVIDERS: ADMIT Family Medicine; ATTEND Family Medicine
PROC: 3E0R3BZ Introduction of Anesthetic Agent into Spinal Canal, Percutaneous Approach (ICD-10-PCS; 2018-09-21)
PROC: 00HU33Z Insertion of Infusion Device into Spinal Canal, Percutaneous Approach (ICD-10-PCS; 2018-09-21)
PROC: 10907ZC Drainage of Amniotic Fluid, Therapeutic from Products of Conception, Via Natural or Artificial Opening (ICD-10-PCS; principal; 2018-09-22)
PROC: 10D00Z1 Extraction of Products of Conception, Low, Open Approach (ICD-10-PCS; principal; 2018-09-22)
PROC: 00HU33Z Insertion of Infusion Device into Spinal Canal, Percutaneous Approach (ICD-10-PCS; 2018-09-22)
PROC: 3E0R3BZ Introduction of Anesthetic Agent into Spinal Canal, Percutaneous Approach (ICD-10-PCS; 2018-09-22)
DX: O99.013 Anemia complicating pregnancy, third trimester (principal); Z3A.38 38 weeks gestation of pregnancy; O99.344 Other mental disorders complicating childbirth; O99.02 Anemia complicating childbirth; D64.9 Anemia, unspecified; F41.9 Anxiety disorder, unspecified; O99.62 Diseases of the digestive system complicating childbirth; Z37.0 Single live birth; K21.9 Gastro-esophageal reflux disease without esophagitis; O75.81 Maternal exhaustion complicating labor and delivery; O77.0 Labor and delivery complicated by meconium in amniotic fluid; Z3A.40 40 weeks gestation of pregnancy; O64.0XX0 Obstructed labor due to incomplete rotation of fetal head, not applicable or unspecified; O36.63X0 Maternal care for excessive fetal growth, third trimester, not applicable or unspecified
CPT/HCPCS: 01961; 01967; 36415; 59409; 85014; 85018; 85027; 94010; A4217; A9270-GY; J0171; J0690; J1885; J2405; J2590; J3010; J7120